=== PATIENT | female | born 1990 | race Caucasian/White ===

== ENCOUNTER 2019-10-20 13:03 | Emergency (ER) | payer SELFPAY ==
[~2019-10-20] VITALS: Ht 152.4 cm; Wt 72.6 kg
[~2019-10-20 13:03] MED LIST: PRENATAL1 EACH PO
[2019-10-20] MEDS ORDERED: LIDOCAINE HCL 1% 2 ML AMP ONE (13:36)
--- NOTE | 2019-10-20 13:42 | Emergency Department Note ---
History of Present Illnes History of Present Illness Chief Complaint: Laceration History of Present Illness This is a 29 year old female . 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 Any updates have been documented here. Past Medical History Recent Fever: No Clinical Suspicion of Infectio: No New/Unexplained Change in Ment: No Past Medical History: None Past Surgical History: None, Social History Smoking Cessation: Never Smoker Alcohol Use: None Any Illegal Drug Use: No TB Exposure/Symptoms: No Physically hurt or threatened: No Family History Family history of heart diseas: No Other Last Tetanus: UNK Any Pre-Existing Lines (PICC,: No Review of Systems Review of Systems Constitutional: no symptoms EENTM: no symptoms Cardiovascular: no symptoms Respiratory: no symptoms Gastrointestinal: no symptoms Genitourinary: no symptoms Musculoskeletal: other (c/o laceration to right hand 1.5cm no active bleeding - cut self while cleaning glass - lac / skin avulsion superficial no f/b noted ) Neurological: no symptoms Psychological: no symptoms Endocrine: no symptoms Hematological/Lymphatic: no symptoms Review of other systems All other systems reviewed and negative. Physical Exam Related Data Allergies: Coded Allergies: No Known Allergies (Unverified , 12/13/11) Triage Vital Signs Vital Signs Date Time Temp Pulse Resp B/P (MAP) Pulse Ox O2 Delivery O2 Flow Rate FiO2 10/20/19 13:22 97.8 67 16 112/65 98 Physical Exam CONSTITUTIONAL Constitutional: well-developed, well-nourished HENT HENT: normocephalic, atraumatic, oropharynx clear/moist, nose normal HENT L/R: left ext ear normal, right ext ear normal EYES Eyes: conjunctivae normal, EOM normal NECK Neck: ROM normal PULMONARY Pulmonary: effort normal, breath sounds normal CARDIOVASCULAR Cardiovascular: regular rhythm, heart sounds normal, capillary refill normal, normal rate GASTROINTESTINAL Abdominal: soft, nontender, bowel sounds normal GENITOURINARY Genitourinary: exam deferred SKIN Skin: other (c/o laceration to right hand 1.5cm no active bleeding - cut self while cleaning glass - lac / skin avulsion superficial no f/b noted - no limited rom to left thumb no distal neuro deficits noted or reported ) MUSCULOSKELETAL Musculoskeletal: ROM normal NEUROLOGICAL Neurological: alert, oriented x 3, no gross motor or sensory deficits PSYCHOLOGICAL Psychological: mood/affect normal, judgement normal Procedures Laceration Laceration: Laceration 1 Site: hand Side: right Description: linear Depth: simple, single layer Local anesthesia: lidocaine 1% Pre-repair: wound exposed, irrigated extensively Skin layer closed with: nylon Size (cm): 5-0 Technique: simple, interrupted Number of sutures: 4 Technique: simple, interrupted Additional comments pt slime well - band aid dressing applied Critical Care Time Subsequent provider I assumed direction of critical care for this patient from another provider of my specialty. Assessment & Plan Assessment & Plan Problems: (1) Laceration of right hand Assessment & Plan 29y f presented to ed c/o laceration / skin avulsion 1.5cm to r dorsal hand no active bleeding superficial no f/b noted on exam discussed plan of care and pt presentation w/ Dr Coleman 1. tylenol and motrin as needed 2. return to ed as needed 3. sutures out in 5-7 days 4. follow up with your doctor/ plastics doctor Tuesday without fail 5. keep wound clean and dry 6. keflex Depart Disposition: HOME, SELF-CARE Last Vital Signs Date Time Temp Pulse Resp B/P (MAP) Pulse Ox O2 Delivery O2 Flow Rate FiO2 10/20/19 13:22 97.8 67 16 112/65 98 Home Meds Reported Medications Vits W-Ca,Fe,Fa(<1MG) () 1 Each Tablet, 1 EACH PO DAILY 12/13/11 Medications in the ED Lidocaine HCl 2 ml STK-MED ONCE .ROUTE ; Start 10/20/19 at 13:36; Stop 10/20/19 at 13:30; Status DC JAMAL CARRANZA NP October 20, 2019 13:42
== END 2019-10-20 14:09 | disposition home or self-care (01) ==
LOC: ER 13:03
DX: S61.411A Laceration without foreign body of right hand, initial encounter (principal); W25.XXXA Contact with sharp glass, initial encounter; Y92.008 Other place in unspecified non-institutional (private) residence as the place of occurrence of the external cause; F17.210 Nicotine dependence, cigarettes, uncomplicated
CPT/HCPCS: 99282